=== PATIENT | male | born 1965 | race Caucasian/White ===

== ENCOUNTER 2017-05-20 03:19 | Inpatient (IN) | payer SELFPAY ==
[~2017-05-20] VITALS: Ht 182.9 cm; Wt 68.0 kg
[2017-05-20] MEDS ORDERED: ONDANSETRON HCL/PF 4 MG/2 ML VIAL IVP PRN (03:30)
[2017-05-20] MEDS ORDERED: ACETAMINOPHEN 325 MG TABLET PO PRN (03:30)
[2017-05-20] MEDS ORDERED: MAG HYDROX/AL HYDROX/SIMETH 30 ML UDC PO PRN (03:30)
[2017-05-20] MEDS ORDERED: PIOG15TA3 PO (03:41)
[2017-05-20] MEDS ORDERED: VALS40TA4 PO (03:41)
[2017-05-20] MEDS ORDERED: ZINC30CA PO (03:41)
[2017-05-20] MEDS ORDERED: IV D5/0.45 NACL 1,000 ML IV PRN (04:00)
[2017-05-20] MEDS ORDERED: NOREPINEPHRINE 8 MG in IV D5W 500 ML IV PRN (04:00)
[2017-05-20] MEDS ORDERED: VALSARTAN 40 MG TABLET PO SCH (04:00)
[2017-05-20] MEDS ORDERED: IV NS 0.9% 1,000 ML IV SCH (04:00)
[2017-05-20] MEDS ORDERED: FLU VACC QS 2017-18(36MOS+)/PF 0.5 ML DISP.SYRIN IM ONE (04:00)
[2017-05-20 04:05] LABS: HEMATOCRIT 46 % (39-51); HEMOGLOBIN 15.4 g/dL (13.5-17.5); MEAN CORPUSCULAR HEMOGLOBIN 30 PG (26.0-33.0); MEAN CORPUSCULAR HGB CONC 33 g/dl (31.0-36.0); MEAN CORPUSCULAR VOLUME 91 fL (80-96); PLATELET COUNT (AUTO) 269 /CMM (150-450); RDW COEFFICIENT OF VARIATION 13.8 (11.5-15.0); RED BLOOD CELL COUNT(AUTO) 5.08 MIL/uL (4.5-6.0); WHITE BLOOD COUNT (AUTO) 5.9 K/uL (4.3-11.0)
[2017-05-20 04:06] LABS: BASOPHILS % (AUTO) 0.6 % (0.0-2.0); EOSINOPHILS % (AUTO) 0.8 % (0.0-6.0); LYMPHOCYTES % (AUTO) 52.2 % (20.0-44.0); MONOCYTES % (AUTO) 8.5 % (2.0-12.0); NEUTROPHILS % (AUTO) 37.9 % (43.0-81.0)
[2017-05-20] MEDS ORDERED: PANT40TA2 PO (04:21)
[2017-05-20] MEDS ORDERED: ARIP2TAB9 PO (04:21)
[2017-05-20 04:23] LABS: TROPONIN I < 0.017 ng/mL (0.00-0.056)
[2017-05-20 04:26] LABS: ALANINE AMINOTRANSFERASE 19 U/L (12-78); ALBUMIN 3.1 g/dL (3.4-5.0); ALKALINE PHOSPHATASE 52 U/L (46-116); ASPARTATE AMINOTRANSFERASE 16 U/L (15-37); BILIRUBIN,TOTAL 0.2 mg/dL (0.2-1.0); CALCIUM, SERUM 8.7 mg/dL (8.5-10.1); CARBON DIOXIDE 31 mmol/L (21-32); CHLORIDE 103 mmol/L (98-107); CREATININE 1.2 mg/dL (0.6-1.3); GLUCOSE 104 mg/dL (74-106); POTASSIUM 4.3 mmol/L (3.5-5.1); SODIUM SERUM 141 mmol/L (136-145); TOTAL PROTEIN, SERUM 7.2 g/dL (6.4-8.2); UREA NITROGEN, BLOOD 25 mg/dL (7-18)
[2017-05-20 04:39] LABS: VANCOMYCIN,RANDOM 0 ug/ml (18-26)
[2017-05-20 04:54] LABS: APPEARANCE,URINE CLEAR (CLEAR); BILIRUBIN,URINE NEGATIVE (NEGATIVE); BLOOD, URINE 1+ Ery/uL (NEGATIVE); COLOR,URINE YELLOW (YELLOW); KETONES,URINE NEGATIVE (NEGATIVE); LEUKOCYTE ESTERASE ,URINE NEGATIVE (NEGATIVE); NITRITE, URINE NEGATIVE (NEGATIVE); PROTEIN,URINE 3+ mg/dl (NEGATIVE); UGLUCOSE NEGATIVE (NEGATIVE); UROBILINOGEN,URINE 0.2 EU/dL (0.2)
[2017-05-20 05:00] LABS: INR 0.94 (0.87-1.13)
[2017-05-20 05:48] LABS: BACTERIA,URINE 0 /HPF (None Seen); SQUAMOUS EPITHELIAL CELL,UR Few /HPF (None Seen); YEAST,URINE None Seen /HPF (None Seen)
[2017-05-20] MEDS ORDERED: ZOSYN IVPB 3.375 G in IV D5W 50ml IV SCH (06:00)
[2017-05-20 06:34] LABS: OSMOLALITY,SERUM 313 mOS/kg (278-305)
[2017-05-20] MEDS ORDERED: PANTOPRAZOLE 40 MG TABLET.DR PO SCH (07:30)
[2017-05-20] MEDS ORDERED: PANTOPRAZOLE 40 MG VIAL IV SCH (09:00)
[2017-05-20] MEDS ORDERED: PIOGLITAZONE HCL 15 MG TABLET PO SCH (09:00)
[2017-05-20] MEDS ORDERED: DOCUSATE SODIUM 100 MG CAPSULE PO SCH (09:00)
[2017-05-20] MEDS ORDERED: ZINC SULFATE 220 MG CAPSULE PO SCH (09:00)
== END 2017-05-20 05:01 | disposition home or self-care (01) | DRG 641 ==
LOC: MED 03:19 → TELE 04:11
PROVIDERS: ADMIT Nurse Practitioner Acute Care; ATTEND Nurse Practitioner Acute Care
DX: E66.9 Obesity, unspecified (principal)
CPT/HCPCS: 36415; 80053-TC; 80202-TC; 81000-TC; 83935-TC; 84484-TC; 84703-TC; 85025-TC; 85730-TC; 86850-TC; 86921-TC; 87040-TC; J2543; J7060; P9012; P9016-BL; P9017-BL; P9034-BL; Q2036